=== PATIENT | female | born 1935 | race Two or more races ===

== ENCOUNTER → 2020-10-09 10:49 | Outpatient (CLI) | payer OTHER | END | disposition home or self-care (01) | LOC: LAB 10:49 | PROVIDERS: ATTEND Radiology Diagnostic Radiology | DX: N20.0 Calculus of kidney (principal) ==

== ENCOUNTER 2020-10-17 07:04 | Outpatient (CLI) | payer OTHER | END 2020-10-17 07:16 | disposition home or self-care (01) | LOC: TOM 07:04 | PROVIDERS: ATTEND Internal Medicine | DX: K85.90 Acute pancreatitis without necrosis or infection, unspecified (principal); K87 Disorders of gallbladder, biliary tract and pancreas in diseases classified elsewhere | CPT/HCPCS: 74178; Q9965 ==

== ENCOUNTER 2021-02-14 08:18 | Outpatient (CLI) | payer OTHER | END 2021-02-14 08:26 | disposition home or self-care (01) | LOC: SONOGRAMA 08:18 | PROVIDERS: ATTEND Internal Medicine | DX: N31.1 Reflex neuropathic bladder, not elsewhere classified (principal) ==

== ENCOUNTER 2021-03-10 13:16 | Emergency (ER) | payer OTHER ==
[~2021-03-10] VITALS: Ht 154.9 cm; Wt 45.4 kg
[2021-03-10] MEDS ORDERED: DIOVAN320 MG PO (13:54)
[2021-03-10] MEDS ORDERED: ARICEPT10 MG PO (13:54)
[2021-03-10] MEDS ORDERED: SIMVASTATIN10 MG PO (13:54)
[2021-03-10] MEDS ORDERED: PYRIDIUM200 MG PO (17:53)
[2021-03-10] MEDS ORDERED: CIPRO500 MG PO (17:53)
== END 2021-03-10 18:02 | disposition home or self-care (01) ==
LOC: ER 13:16
DX: N30.00 Acute cystitis without hematuria (principal); R10.2 Pelvic and perineal pain

== ENCOUNTER 2023-09-28 07:54 | Outpatient (CLI) | payer OTHER ==
[~2023-09-28 07:54] MED LIST: ARICEPT10 MG PO; CIPRO500 MG PO; DIOVAN320 MG PO; PYRIDIUM200 MG PO; SIMVASTATIN10 MG PO
[2023-09-28 09:42] LABS: HEMATOCRIT 33.4 % (36.0-45.00); MEAN CELL VOLUME 96.3 fL (80.00-100.00); MEAN CORPUSCULAR HEMOGLOBIN 31.9 pg (27.00-32.0); MEAN CORPUSCULAR HGB CONC 33.1 g/dl (32.0-36.0); PLATELET COUNT 338 K/uL (150-450); RED BLOOD COUNT 3.47 M/uL (4.00-6.00); RED CELL DISTRIBUTION WIDTH 12.8 % (11.5-14.5)
[2023-09-28 09:44] LABS: URINE APPEARANCE Clear; URINE BILIRRUBIN Negative (NEGATIVE); URINE BLOOD Negative; URINE COLOR Yellow; URINE GLUCOSE Negative (NEGATIVE); URINE LEUKOCYTE Negative; URINE NITRATE Negative; URINE PROTEIN Negative (NEGATIVE)
[2023-09-28 09:49] LABS: URINE BACTERIA 8.8 uL (0.0-1933); URINE EPITHELIAL CELLS 9.8 uL (0.0-38.8); URINE RBC 16.8 uL (0.0-20.8); URINE WBC 11.8 uL (0.0-23.2)
[2023-09-28 10:39] LABS: ALBUMIN 3.8 gm/dL (3.4-5.0); BILIRUBIN TOTAL 0.41 mg/dL (0.3-1.2); CALCIUM 9.6 mg/dL (8.5-10.1); CHOL HDL RATIO 2.1 (0-5.0); CREATININE SERUM 0.78 mg/dL (0.55-1.02); GFR 69.86; GLOBULINA 3.4 G/DL (2.4-3.5); POTASSIUM 4.9 mEq/L (3.5-5.1); TOTAL PROTEIN 7.2 gm/dL (6.4-8.2); TSH 1.59 uIU/mL (0.358-3.74)
== END 2023-09-28 07:55 | disposition home or self-care (01) ==
LOC: LAB 07:54
PROVIDERS: ATTEND Internal Medicine
DX: E11.21 Type 2 diabetes mellitus with diabetic nephropathy (principal); N39.0 Urinary tract infection, site not specified; E78.2 Mixed hyperlipidemia; E11.65 Type 2 diabetes mellitus with hyperglycemia; D64.9 Anemia, unspecified; E55.9 Vitamin D deficiency, unspecified

== ENCOUNTER 2023-09-28 08:47 | Outpatient (CLI) | payer OTHER | END 2023-09-28 08:55 | disposition home or self-care (01) | LOC: RAD 08:47 | PROVIDERS: ATTEND Internal Medicine | DX: R42 Dizziness and giddiness (principal); G44.309 Post-traumatic headache, unspecified, not intractable; M25.572 Pain in left ankle and joints of left foot ==

== ENCOUNTER 2023-10-12 10:27 | Outpatient (CLI) | payer OTHER | END 2023-10-12 10:37 | disposition home or self-care (01) | LOC: RAD 10:27 | PROVIDERS: ATTEND Internal Medicine | DX: M79.641 Pain in right hand (principal); S69.92XA Unspecified injury of left wrist, hand and finger(s), initial encounter ==

== ENCOUNTER 2023-10-15 09:01 | Emergency (ER) | payer OTHER ==
[~2023-10-15] VITALS: Ht 157.5 cm; Wt 38.6 kg
[2023-10-15 10:09] LABS: HEMOGLOBIN 9.9 g/dL (12.0-15.00); MEAN CELL VOLUME 93.9 fL (80.00-100.00); MEAN CORPUSCULAR HEMOGLOBIN 32.2 pg (27.00-32.0); MEAN CORPUSCULAR HGB CONC 34.2 g/dl (32.0-36.0); PLATELET COUNT 325 K/uL (150-450); RED BLOOD COUNT 3.09 M/uL (4.00-6.00); RED CELL DISTRIBUTION WIDTH 12.3 % (11.5-14.5)
[2023-10-15 10:45] LABS: CALCIUM 9.3 mg/dL (8.5-10.1); CREATININE SERUM 0.81 mg/dL (0.55-1.02); GFR 66.88; POTASSIUM 4.29 mEq/L (3.5-5.1)
[2023-10-15 12:24] LABS: URINE APPEARANCE Clear; URINE BILIRRUBIN Negative (NEGATIVE); URINE BLOOD Negative; URINE COLOR Yellow; URINE GLUCOSE Negative (NEGATIVE); URINE LEUKOCYTE Negative; URINE NITRATE Negative; URINE PROTEIN Negative (NEGATIVE); URINE UROBILINOGEN 0.2 E.U./dl
[2023-10-15 12:56] LABS: URINE BACTERIA 56.6 uL (0.0-1933); URINE RBC 7.8 uL (0.0-20.8); URINE WBC 4.4 uL (0.0-23.2)
== END 2023-10-15 14:30 | disposition home or self-care (01) ==
LOC: ER 09:01
PROVIDERS: General Practice
DX: S20.229A Contusion of unspecified back wall of thorax, initial encounter (principal); W19.XXXA Unspecified fall, initial encounter; Y93.89 Activity, other specified; Y92.89 Other specified places as the place of occurrence of the external cause; I10 Essential (primary) hypertension

== ENCOUNTER 2023-10-20 12:25 | Emergency (ER) | payer OTHER ==
[~2023-10-20] VITALS: Ht 157.5 cm; Wt 45.4 kg
[2023-10-20 14:13] LABS: HEMATOCRIT 31.6 % (36.0-45.00); HEMOGLOBIN 10.7 g/dL (12.0-15.00); MEAN CELL VOLUME 94.8 fL (80.00-100.00); MEAN CORPUSCULAR HEMOGLOBIN 32.2 pg (27.00-32.0); PLATELET COUNT 419 K/uL (150-450); RED BLOOD COUNT 3.34 M/uL (4.00-6.00); RED CELL DISTRIBUTION WIDTH 12.6 % (11.5-14.5)
[2023-10-20 14:35] LABS: CALCIUM 9.6 mg/dL (8.5-10.1); CREATININE SERUM 0.67 mg/dL (0.55-1.02); GFR 83.26; POTASSIUM 3.77 mEq/L (3.5-5.1)
[2023-10-20] MEDS ORDERED: DEXAMETHASONE SODIUM PHOSPHATE 4 MG/ML VIAL IV STA (15:00)
== END 2023-10-20 18:28 | disposition designated cancer center or children's hospital (05) ==
LOC: ER 12:25
PROVIDERS: General Practice
DX: S06.5X1A Traumatic subdural hemorrhage with loss of consciousness of 30 minutes or less, initial encounter (principal); W18.30XA Fall on same level, unspecified, initial encounter; Y93.9 Activity, unspecified; Y92.013 Bedroom of single-family (private) house as the place of occurrence of the external cause; Y99.9 Unspecified external cause status
CPT/HCPCS: 36415; 70450; 72040; 96365 ×2; 99285; J1100